=== PATIENT | female | born 1960 | race African-American/Black ===

== ENCOUNTER → 2016-08-18 | Day surgery (SDC) | payer OTHER | END | disposition home or self-care (01) | LOC: FAS 06:52 | DX: Z12.11 Encounter for screening for malignant neoplasm of colon (principal); I10 Essential (primary) hypertension; E11.9 Type 2 diabetes mellitus without complications; M19.90 Unspecified osteoarthritis, unspecified site; F32.9 Major depressive disorder, single episode, unspecified; G56.00 Carpal tunnel syndrome, unspecified upper limb; M79.7 Fibromyalgia; M10.9 Gout, unspecified; K21.9 Gastro-esophageal reflux disease without esophagitis; Z98.51 Tubal ligation status; Z98.890 Other specified postprocedural states; Z91.013 Allergy to seafood; Z80.3 Family history of malignant neoplasm of breast; Z81.8 Family history of other mental and behavioral disorders; Z82.61 Family history of arthritis; Z82.49 Family history of ischemic heart disease and other diseases of the circulatory system; Z80.0 Family history of malignant neoplasm of digestive organs; Z83.3 Family history of diabetes mellitus; Z82.3 Family history of stroke; Z83.49 Family history of other endocrine, nutritional and metabolic diseases; Z79.84 Long term (current) use of oral hypoglycemic drugs; Z79.899 Other long term (current) drug therapy | CPT/HCPCS: J2704 ==

== ENCOUNTER 2020-12-25 07:31 | Emergency (ER) | payer OTHER ==
[~2020-12-25 07:31] MED LIST: 8 HOUR PAIN RE650 MG PO; ASPIRIN EC81 MG PO; CYCLOBENZAPRINE10 MG PO; FLEXERIL10 MG PO; GABAPENTIN400 MG PO; IBANDRONATE SO150 MG PO; K-DUR20 MEQ PO; MAPAP ARTHRITI650 MG PO; MELATONIN5 M2 PO; MOBIC15 MG PO; NEURONTIN300 MG PO; NORCO 5/3251 EACH PO; TRIAMTERENE-HC1 EAC1 PO; TRULICITY1.5 MG/0.5 SC
[2020-12-25] MEDS ORDERED: NORCO 5-325 TA1 EACH PO (08:17)
[2020-12-25] MEDS ORDERED: AMOXICILLIN875 MG PO (08:17)
[2020-12-25] MEDS ORDERED: MOBIC15 MG PO (08:17)
[2021-03-15] MEDS ORDERED: NORCO 5/3251 EACH PO (15:26)
== END 2020-12-25 08:40 | disposition home or self-care (01) ==
LOC: FER 07:31
DX: M26.601 Right temporomandibular joint disorder, unspecified (principal); I10 Essential (primary) hypertension; E11.9 Type 2 diabetes mellitus without complications
CPT/HCPCS: 93005

== ENCOUNTER 2021-04-30 10:16 | Emergency (ER) | payer MEDICARE, OTHER ==
[~2021-04-30 10:16] MED LIST changes: +AMOXICILLIN875 MG PO; +NORCO 5-325 TA1 EACH PO
== END 2021-04-30 12:56 | disposition home or self-care (01) ==
LOC: FER 10:16
DX: G89.29 Other chronic pain (principal); M54.50 Low back pain, unspecified; E11.9 Type 2 diabetes mellitus without complications; Z91.013 Allergy to seafood; Z91.040 Latex allergy status; Z91.041 Radiographic dye allergy status
CPT/HCPCS: J1100

== ENCOUNTER 2022-02-20 12:31 | Emergency (ER) | payer MEDICARE, OTHER ==
[2022-02-20 14:38] LABS: BILIRUBIN NEGATIVE (NEGATIVE); BLOOD NEGATIVE Ery/uL (NEGATIVE); CLARITY CLEAR (CLEAR); COLOR YELLOW (YELLOW); GLUCOSE (U) NORMAL (NORMAL); LEUKOCYTES NEGATIVE Leu/uL (NEGATIVE); NITRITE NEGATIVE (NEGATIVE); PROTEIN NEGATIVE (NEGATIVE); UROBILINOGEN 0.2 mg/dL (0.2-1.0)
[2022-02-20 14:55] LABS: BASOPHIL 0.6 % (0-2); EOSINOPHIL 1.3 % (0-5); HCT 33.9 % (37.0-47.0); HGB 10.8 g/dl (12.5-16.0); LYMPHOCYTE 49.1 % (15-48); MCH 27.7 pg (25.0-31.0); MCHC 31.9 g/dL (32.0-36.0); MCV 86.9 fL (78.0-100.0); MONOCYTE 5.9 % (0-12); MPV 11.6 fL (6.0-9.5); NEUTROPHIL 42.9 % (41-80); NRBC 0; PLT 196 K/uL (150-400); RDW 15.4 % (11.5-14.0); WBC 5.4 K/uL (4.0-10.5)
[2022-02-20 15:07] LABS: ALBUMIN 3.9 g/dL (3.4-5.0); BILIRUBIN - TOTAL 0.6 mg/dL (0.2-1.0); BUN/CREAT RATIO (CALC) 22.8 RATIO; CREATININE 0.92 mg/dL (0.51-0.95); GLOBULIN (CALCULATION) 3.2 g/dL; POTASSIUM 3.7 mmol/L (3.5-5.1); TOTAL PROTEIN 7.1 g/dL (6.4-8.2)
== END 2022-02-20 17:15 | disposition home or self-care (01) ==
LOC: FER 12:31
PROVIDERS: Emergency Medicine
DX: M54.9 Dorsalgia, unspecified (principal); R10.2 Pelvic and perineal pain; D64.9 Anemia, unspecified; E11.9 Type 2 diabetes mellitus without complications; I10 Essential (primary) hypertension; Z79.84 Long term (current) use of oral hypoglycemic drugs; Z79.82 Long term (current) use of aspirin; Z79.899 Other long term (current) drug therapy; Z91.018 Allergy to other foods; Z91.040 Latex allergy status; Z91.041 Radiographic dye allergy status
CPT/HCPCS: 36415; 80053; 81003; 83690; 85025